=== PATIENT | female | born 1975 | race African-American/Black ===

== ENCOUNTER 2016-12-13 21:36 | Emergency (ER) | payer OTHER, SELFPAY ==
[2016-12-13] MEDS ORDERED: Ondansetron ODT 4 MG TAB ONE (22:07)
== END 2016-12-13 23:04 | disposition home or self-care (01) ==
LOC: BURERS 21:36
DX: K08.89 Other specified disorders of teeth and supporting structures (principal); I10 Essential (primary) hypertension; Z79.899 Other long term (current) drug therapy
CPT/HCPCS: 36416; 93005; 96372; J2270; Q0162

== ENCOUNTER 2019-01-21 10:15 | Emergency (ER) | payer OTHER, SELFPAY ==
[2019-01-21] MEDS ORDERED: Ibuprofen 800 MG TAB ONE (10:31)
--- NOTE | 2019-01-21 22:11 | RAD ---
LEFT SHOULDER THREE VIEWS: 01/21/19 No fracture, dislocation or AC joint widening was seen. No periarticular calcifications are present. The visible adjacent ribs appear normal. IMPRESSION: No significant finding. POS: HOME
== END 2019-01-21 11:11 | disposition home or self-care (01) ==
LOC: BURERS 10:15
DX: S43.402A Unspecified sprain of left shoulder joint, initial encounter (principal); S80.02XA Contusion of left knee, initial encounter; I10 Essential (primary) hypertension; Z79.899 Other long term (current) drug therapy; W19.XXXA Unspecified fall, initial encounter